=== PATIENT | male | born 1955 | race Two or more races ===

== ENCOUNTER 2024-02-02 09:58 | Outpatient (CLI) | payer OTHER ==
[~2024-02-02 09:58] MED LIST: AMLODIPINE BESYL5 MG PO; ATORVASTATIN CA10 MG PO; DIOVAN320 MG PO; HUMALOG100 UNIT/1; LANTUS SOL100 UNIT/1 SQ; LASIX20 MG PO; OMEPRAZOLE MAGN20 MG PO; TOPROL XL25 M1 PO; XARELTO10 MG PO
== END 2024-02-02 10:03 | disposition home or self-care (01) ==
LOC: RAD 09:58
PROVIDERS: ATTEND General Practice
DX: S82.851A Displaced trimalleolar fracture of right lower leg, initial encounter for closed fracture (principal)